=== PATIENT | male | born 1940 | race Caucasian/White ===

== ENCOUNTER → 2017-05-31 | Outpatient (CLI) | payer OTHER | LOC: BHFA 11:00 | PROVIDERS: ATTEND Internal Medicine Cardiovascular Disease | DX: I20.9 Angina pectoris, unspecified (principal); E78.5 Hyperlipidemia, unspecified; I25.10 Atherosclerotic heart disease of native coronary artery without angina pectoris ==

== ENCOUNTER 2017-06-01 13:27 | Inpatient (IN) | payer OTHER ==
[2017-06-01] MEDS ORDERED: DIAZEPAM 5 MG TAB PO ONE (13:29)
[2017-06-01] MEDS ORDERED: diphenhydrAMINE 25 MG CAP PO ONE (13:29)
[2017-06-01] MEDS ORDERED: FAMOTIDINE 20 MG TAB PO ONE (13:29)
[2017-06-01] MEDS ORDERED: NS 1,000 ML IV ONE (13:29)
[2017-06-01] MEDS ORDERED: ASPIRIN EC 325 MG TAB PO ONE (13:29)
--- NOTE | 2017-06-01 13:56 | CPEKG ---
Heart Rate: 57 RR Interval: 1053 P-R Interval: 132 QRSD Interval: 92 QT Interval: 456 QTC Interval: 444 P Linden: -1 QRS Linden: -25 T Wave Lind[place]: 7 EKG Severity - OTHERWISE NORMAL ECG - EKG Impression: SINUS RHYTHM EKG Impression: BORDERLINE LEFT AXIS DEVIATION EKG Impression: Agree with above. Electronically Signed By: Kane Lane 01-Jun-2017 17:02:31
[2017-06-01 14:21] LABS: % IMMATURE GRANULYOCYTES 0.2 % (0.0-1.1); ABSOLUTE IMMATURE GRANULOCYTES 0.01 10^3/uL (0.00-0.10); ADD DIFF? NO; ADD MORPH? NO; ADD SCAN? NO; ATYPICAL LYMPHOCYTE FLAG 40 (0-99); FRAGMENT RBC FLAG 0 (0-99); HEMATOCRIT 42.2 % (40.0-51.0); HEMOGLOBIN 14.4 g/dL (13.7-17.5); LEFT SHIFT FLG 0 (0-99); LIPEMIA HEMOLYSIS FLAG 90 (0-99); MEAN CELL HEMOGLOBIN 32.1 pg (27.9-34.1); MEAN CELL HEMOGLOBIN CONCENTR. 34.1 g/dL (32.4-36.7); MEAN CELL VOLUME 94.2 fL (81.5-99.8); MEAN PLATELET VOLUME 10.1 fL (8.7-11.7); PLATELET CLUMPS FLAG 20 (0-99); PLATELET COUNT 141 10^3/uL (150-400); RED BLOOD CELL COUNT 4.48 10^6/uL (4.40-6.38); RED CELL DISTRIBUTION WIDTH 14.1 % (11.5-15.2)
[2017-06-01 14:33] LABS: INR 1.07 (0.83-1.16); PROTIME(PATIENT) 13.8 SEC (12.0-15.0)
[2017-06-01 14:37] LABS: ANION GAP 13 mEq/L (8-16); CALCIUM 9.8 mg/dL (8.5-10.4); CARBON DIOXIDE 21 mEq/l (22-31); CHLORIDE 111 mEq/L (97-110); CHOLESTEROL 112 mg/dL (140-220); CHOLESTEROL/HDL RATIO 2.24 RATIO (1.00-4.97); CREATININE 0.7 mg/dL (0.7-1.3); GLOMERULAR FILTRATION RATE > 60; GLUCOSE 94 mg/dL (70-100); HIGH DENSITY LIPOPROTEIN 50 mg/dL (40-65); LDL/HDL RATIO 1.04 RATIO (1.00-3.64); LOW DENSITY LIPOPROTEIN 52 mg/dL (80-100); MAGNESIUM 2.2 mg/dL (1.6-2.3); NON-HIGH DENSITY LIPOPROTEIN 62 mg/dL (90-129); POTASSIUM 4.1 mEq/L (3.5-5.2); SODIUM 145 mEq/L (134-144); TRIGLYCERIDE 52 mg/dL (40-150); VERY LOW DENSITY LIPOPROTEINS 10 mg/dL (8-25)
[2017-06-01] MEDS ORDERED: fentaNYL 100 MCG/2 ML INJ ONE (15:55)
[2017-06-01] MEDS ORDERED: LIDOCAINE 1% 300 MG/30 ML SDV ONE (15:55)
[2017-06-01] MEDS ORDERED: HEPARIN 10,000 UNIT/10 ML MDV ONE (15:56)
[2017-06-01] MEDS ORDERED: MIDAZOLAM 2 MG/2 ML VIAL ONE ×3 (15:56→16:38)
[2017-06-01] MEDS ORDERED: VERAPAMIL 5 MG/2 ML VIAL ONE (15:56)
[2017-06-01] MEDS ORDERED: IOPAMIDOL (ISOVUE-370) 150 ML BTL IV ONE (15:57)
[2017-06-01] MEDS ORDERED: ONDANSETRON 4 MG/2 ML VIAL IVP PRN (17:30)
[2017-06-01] MEDS ORDERED: NITROGLYCERIN 0.4 MG BTL SL PRN (17:30)
[2017-06-01] MEDS ORDERED: ATROPINE SULFATE 1 MG/10 ML SYR IVP PRN (17:30)
[2017-06-01] MEDS ORDERED: NS 1,000 ML IV SCH (17:30)
[2017-06-01] MEDS ORDERED: NON-FORMULARY NEW DRUG (Loratadine [Claritin 10 Mg] 10 MG) PO PRN (17:35)
--- NOTE | 2017-06-01 17:41 | PDDXCAT ---
Diagnostic Cath Note - . Date: 06/01/17 [employer]ane [employer] Feeding Machine Operator: Keo Indication: CCC Class III and IV angina on medical treatment - Procedure Access: right wrist Procedure: left heart catheterization, coronary angiography, left ventriculogram - Materials Left Heart Cath size: 5F Left Heart Cath materials: other (Sightseer and Pigtail) - Findings-Left Heart Catheterization LM: Calcified with approximately 50% stenosis. LAD: Proximal LAD is calcified and involved with distal left main stenosis. Proximal LAD approximately 60%. Ostium of principle diagonal 60-70%. LCX: Proximal circumflex is also calcified and involved with left main stenosis. Proximal lesion of at least 50%. Remainder of circumflex with mild irregularities. RCA: Mid vessel 50%. Continuation of distal RCA, supplying 2 posterolateral branches, has a high grade stenosis of at least 80% at its origin just after the PDA arises. EDP: 12 mmHg LVEF: 70 % Wall motion: Normal. Complications: None Estimated blood loss: <50ml Closure method: TR Band Assessment: 1. Normal left ventricular systolic function. 2. CAD as described above. Plan: The patient will be admitted to PCU. A CT surgery consult will be obtained for consideration of CABG. Will require greater than to midnight stay for definitive care of his multivessel CAD.
--- NOTE | 2017-06-01 17:54 | ECHO ---
[id number] + + [id number] : : [place] [address] : : [phone] + + Adult Echocardiographic Report + -----+ :Name: LORI PANIAGUA Date: 06/01/2017 02:17 PM BP: 111/79 mmHg : : Hospital Admission Number: [id number] Location : [facility]: :: 1940 Gender: Male Height: 70 in : :Age: 76 yrs Race: WH Weight: 195 lb : :Reason For Study: eval for vegetations : : BSA: 2.1 meters2 : :History: chest pain : + -----+ MMode/2D Measurements \T\ Calculations IVSd: 0.82 cm RVDd: 3.0 cm FS: 32.1 % Ao root diam: LVPWd: 0.86 cm LVIDd: 4.3 cm EDV(Teich): 2.7 cm LVIDs: 2.9 cm 82.6 ml ESV(Teich): 32.5 ml EF(Teich): 60.6 % LVLd ap4: 8.3 cm SV(MOD-sp4): EDV(MOD-sp4): 89.0 ml 131.0 ml LVLs ap4: 5.9 cm ESV(MOD-sp4): 42.0 ml EF(MOD-sp4): 67.9 % Normal Measurement Values: + + :LVIDd (3.5-5.7cm) IVSd (0.6-1.1cm) LVPWd (0.6-1.1cm) Aortic Root (2.0-3.7cm)Left Atrium (1.5-4.0cm): :LV Vol(d) (76-115ml) LV Vol(s) (29-48ml) Ejec Fraction (50-65%)PV Cooper (0.6- 1.2m/s) TV Cooper (0.4-1.0m/s) : :MV E Cooper (0.8-1.0m/s)MV A Cooper (0.3-1.0m/s)LVOT Cooper (0.7-1.2m/s) Asc Ao Cooper ( 0.9-1.8m/s) : + + Doppler Measurements \T\ Calculations MV E max cooper: Ao V2 max: LV V1 max: PA V2 max: 76.0 cm/sec 121.6 cm/sec 94.4 cm/sec 123.5 cm/sec MV A max cooper: Ao max P.9 mmHgLV V1 max PG: PA max P.1 mmHg 76.0 cm/sec 3.6 mmHg MV E/A: 1.0 MV dec time: 0.24 sec Left Ventricle The left ventricle is normal in size and function. There is normal left ventricular wall thickness. Ejection Fraction = 65%. No regional wall motion abnormalities noted. Right Ventricle The right ventricle is normal in size and function. Atria The left atrial size is normal. Right atrial size is normal. Mitral Valve The mitral valve is normal in structure and function. There is no mitral valve stenosis. There is no mitral regurgitation noted. Tricuspid Valve The tricuspid valve is normal in structure and function. There is no tricuspid stenosis. There is trace tricuspid regurgitation. Aortic Valve The aortic valve is trileaflet. There is no aortic stenosis. There is no aortic insufficiency. Pulmonic Valve The pulmonic valve is normal in structure and function. There is no pulmonic valvular regurgitation. Great Vessels The aortic root is normal size. Pericardium/Pleural There is no pericardial effusion. Conclusion A two-dimensional transthoracic echocardiogram with M-mode and Doppler was performed. The left ventricle is normal in size and function. Ejection Fraction = 65%. Normal appearing valvular structures. There is trace tricuspid regurgitation. Final Reading Physician: Roman Hodge signed on 06/01/2017 05:52 PM Ordering Physician: Jere Crowley Performed By: Makenna Joshua
[2017-06-01] MEDS ORDERED: CETIRIZINE 10 MG TAB PO PRN (18:45)
[2017-06-01] MEDS: NIACIN 500 MG TAB PO SCH (21:03)
[2017-06-02] MEDS: NIACIN 500 MG TAB PO SCH ×2 (08:52→20:13)
[2017-06-02] MEDS: EZETIMIBE 10 MG TAB PO SCH (08:54)
[2017-06-02] MEDS: ATORVASTATIN CALCIUM 40 MG TAB PO SCH (08:54)
[2017-06-02] MEDS: DUTASTERIDE 0.5 MG CAP PO SCH (08:54)
[2017-06-02] MEDS: GLUCOSAMINE/CHONDROITIN CAP PO SCH (08:54)
[2017-06-02] MEDS: METOPROLOL SUCCINATE XR 25 MG TAB PO SCH (08:54)
[2017-06-02] MEDS: ASPIRIN 81 MG CHEWABLE TAB PO SCH (08:54)
[2017-06-02] MEDS ORDERED: NON-FORMULARY NEW DRUG (Atorvastatin Calcium [Lipitor 80 Mg] 80 MG) PO SCH (09:00)
--- NOTE | 2017-06-02 15:05 | PDSURGCRDT ---
CardioThoracic Surgery Note - Objective Objective: Vital Signs Temp Pulse Resp BP Pulse Ox 36.5 C 57 L 17 144/76 H 90 L 06/02/17 12:00 06/02/17 12:00 06/02/17 12:00 06/02/17 12:00 06/02/17 12:00 Laboratory Results 06/01/17 13:50 06/01/17 13:50 06/01/17 06/02/17 06/03/17 05:59 05:59 05:59 Intake Total 2000 Output Total 325 Balance 1675 Films reviewed. Pt examined. He has had exertional angina since Sep but is now having episodes of rest angina. Cath shows mod LM stenosis and sig 3vessel disease with normal LV function. Will plan CABG x 4 w/ 3-4 grafts tomorrow afternoon with bilat IMAs and 1-2 SVG. Have discussed risks and indications, including risk of sternal infection. Exam Temp Pulse Resp BP Pulse Ox 36.5 C 57 L 17 144/76 H 90 L 06/02/17 12:00 06/02/17 12:00 06/02/17 12:00 06/02/17 12:00 06/02/17 12:00 O2 (L/minute) 1
--- NOTE | 2017-06-02 15:16 | PDCARPN ---
Cardiology Progress Note Assessment/Plan: Coronary Artery Disease- significant left main disease (at least 50%) with calcification involving left main/proximal LAD/proximal circumflex. Also has high grade distal RCA lesion. Normal LV function. Current eval prompted by worsening angina. CT surgery to see. Hyperlipidemia- on atorvastatin, Zetia, and niacin. LDL on target at 52. 06/02/17 15:14 Subjective: No complaints. Objective: Vital Signs (8 Hrs) Temp Pulse Resp BP Pulse Ox 06/02/17 12:00 36.5 C 57 L 17 144/76 H 90 L 06/02/17 08:54 60 120/69 Intake/Output (24 Hrs) 06/01/17 06/02/17 06/03/17 05:59 05:59 05:59 Intake Total 2000 Output Total 325 Balance 1675 Intake: Oral (ml) 500 IV Intake (ml) 1500 Output: Urine (ml) 325 Urinal 325 Other: Weight 88.5 kg Number of Voids Urinal 1 Result Diagrams: 06/01/17 13:50 06/01/17 13:50 - Physical Exam Constitutional: healthy appearing, no apparent distress Eyes: anicteric sclera Ears, Nose, Mouth, Throat: moist mucous membranes Cardiovascular: regular rate and rhythm, no murmurs, no rubs, no gallops Respiratory: clear to auscultate bilat Gastrointestinal: normoactive bowel sounds, no tenderness, no masses Skin: no rashes, no edema Neurologic: AAOx3 Psychiatric: not anxious ICD10 Worksheet Patient Problems: Problems Problem Status Onset Angina pectoris Acute Hyperlipidemia Acute Coronary artery disease Acute
[2017-06-02] MEDS: MUPIROCIN 2% 22 GM OINT NS SCH (20:12)
[2017-06-02] MEDS: SENNOSIDES/DOCUSATE SODIUM TAB PO SCH (20:13)
[2017-06-02] MEDS ORDERED: CHLORHEXIDINE GLUC HIBICLENS 118 ML BTL TP SCH (21:00)
[2017-06-03 05:04] LABS: ANION GAP 9 mEq/L (8-16); CALCIUM 9.5 mg/dL (8.5-10.4); CARBON DIOXIDE 24 mEq/l (22-31); CHLORIDE 112 mEq/L (97-110); CREATININE 0.8 mg/dL (0.7-1.3); GLOMERULAR FILTRATION RATE > 60; GLUCOSE 95 mg/dL (70-100); POTASSIUM 4.7 mEq/L (3.5-5.2); SODIUM 145 mEq/L (134-144)
[2017-06-03] MEDS: METOPROLOL SUCCINATE XR 25 MG TAB PO SCH (09:44)
[2017-06-03] MEDS: DUTASTERIDE 0.5 MG CAP PO SCH (09:44)
[2017-06-03] MEDS ORDERED: MILRINONE/DEXTROSE/100 ML BAG IV ONE (10:30)
[2017-06-03] MEDS ORDERED: CALCIUM CHLORIDE 1 GM/10 ML INJ ONE ×2 (10:30→10:34)
[2017-06-03] MEDS ORDERED: PROTAMINE SULFATE 50 MG/5 ML VIAL IVP ONE (10:30)
[2017-06-03] MEDS ORDERED: POTASSIUM Cl (KCl) 20 MEQ/50 ML BAG IV ONE (10:30)
[2017-06-03] MEDS ORDERED: niCARdipine/NACL/200 ML BAG IV ONE (10:31)
[2017-06-03] MEDS ORDERED: NA BICARBONATE 50 MEQ/50 ML VIAL ONE (10:31)
[2017-06-03] MEDS ORDERED: DOPamine/DEXTROSE/250 ML BAG IV ONE (10:31)
[2017-06-03] MEDS ORDERED: AMINOCAPROIC ACID 5 GM/20 ML VIAL ONE ×2 (10:31→10:34)
[2017-06-03] MEDS ORDERED: HEPARIN 10,000 UNIT/10 ML MDV ONE ×2 (10:32→10:35)
[2017-06-03] MEDS ORDERED: AMIODARONE HCL 150 MG/3 ML VIAL ONE ×2 (10:32→10:34)
[2017-06-03] MEDS ORDERED: ADENOSINE 6 MG/2 ML VIAL ONE (10:32)
[2017-06-03] MEDS ORDERED: ceFAZolin 1 GM VIAL ONE (10:33)
[2017-06-03] MEDS ORDERED: ALBUMIN 5% 250 ML BOTTLE IV ONE (10:33)
[2017-06-03] MEDS ORDERED: LIDOCAINE 2% 100 MG/5 ML SYR ONE (10:34)
[2017-06-03] MEDS ORDERED: CITRATE DEXTROSE SOLN 500 ML BAG ONE (10:34)
[2017-06-03] MEDS ORDERED: methylPREDNISolone SOD SUCC 1 GM/8 ML VIAL ONE (10:35)
[2017-06-03] MEDS ORDERED: MAGNESIUM SULFATE 1 GM/2 ML VIAL ONE (10:35)
[2017-06-03] MEDS ORDERED: INSULIN REGULAR HUMAN 100 UNIT in NS 100 ML IV ONE (11:00)
[2017-06-03] MEDS ORDERED: CITRATE DEXTROSE SOLN 500 ML BAG MISC ONE (11:00)
[2017-06-03] MEDS ORDERED: NS 1,000 ML IV ONE (11:00)
[2017-06-03] MEDS ORDERED: VERAPAMIL 5 MG, NITROGLYCERIN 2.5 MG, HEPARIN 500 UNIT, SODIUM BICARBONATE 0.2 MEQ in L... MISC ONE (11:00)
[2017-06-03] MEDS ORDERED: PAPAVERINE HCL 60 MG in NS 100 ML IV ONE (11:00)
[2017-06-03] MEDS ORDERED: PHENYLEPHRINE HCL 50 MG in NS 250 ML IV ONE (11:00)
[2017-06-03] MEDS ORDERED: AMINOCAPROIC ACID 5 GM/20 ML VIAL IV ONE (11:00)
[2017-06-03] MEDS ORDERED: SODIUM BICARBONATE 20 MEQ, LIDOCAINE 1% 10 ML in NORMOSOL-R 1,000 ML MISC ONE (11:00)
[2017-06-03] MEDS ORDERED: ceFAZolin 2 GM/DEXTROSE 100 ML IV ONE (11:00)
[2017-06-03] MEDS ORDERED: MANNITOL 25% 12.5 GM/50 ML VIAL IV ONE (11:00)
--- NOTE | 2017-06-03 11:22 | PDGENHP ---
History and Physical - Chief Complaint severe multivessel CAD - History of Present Illness 76 yo male with multiple cardiac risk factors and crescendo angina admitted for elective cardiac cath and found to have severe multivessel CAD. Medically optimized and referred for surgical revascularization. No associated LVSD, LVDD , valvular dysfx, arrhythmia, CHF, or prohibitive neurologic risk. No CP or hemodynamic instability awaiting OR. History Information - Allergies/Home Medication List Allergies/Adverse Reactions: No Known Allergies Allergy (Unverified 06/01/17 13:29) Home Medications: Aspirin [Aspirin 81mg (*)] 81 mg PO DAILY 06/01/17 [Last Taken 05/31/17] Atorvastatin Calcium [Lipitor 80 mg] 80 mg PO DAILY 06/01/17 [Last Taken ] Dutasteride [Avodart 0.5 MG (*)] 0.5 mg PO DAILY 06/01/17 [Last Taken 05/31/17] Ezetimibe [Zetia 10 MG (*)] 10 mg PO DAILY 06/01/17 [Last Taken 05/31/17] Glucosamine/Chondroitin [Glucosamine/Chondroitin (*)] 1 each PO DAILY 06/01/17 [ Last Taken 05/31/17] Ibuprofen [Motrin (*)] 200 mg PO DAILY PRN 06/01/17 [Last Taken Unknown] Loratadine [Claritin 10 mg] 10 mg PO DAILY PRN 06/01/17 [Last Taken Unknown] Metoprolol Succinate Xr [Toprol Xl 25 mg (*)] 25 mg PO DAILY 06/01/17 [Last Taken 06/01/17] Niacin [Niacin 500 mg (*)] 2,000 mg PO HS 06/01/17 [Last Taken 05/31/17] Nitroglycerin [Nitrostat 0.4 mg (*)] 0.4 mg SL Q5M 06/01/17 [Last Taken Unknown] TESTOSTERONE [Androgel 1.62% pump] 10 gr TD DAILY 06/01/17 [Last Taken 05/31/17] Tadalafil [Cialis] 5 mg PO DAILY 06/01/17 [Last Taken 05/31/17] I have personally reviewed and updated: family history (premature CAD), medical history, social history (remote smoker, 40pk yr hx), surgical history - Past Medical History coronary artery disease (presumed by elevated calcium score on EBCT 4 yrs ago), hyperlipidemia Additional medical history: Exertional chest pressure x 8mo, resolving within 5 min of rest. Increased frequency at earlier levels of exercise over past couple weeks, including some rest pain - Surgical History Additional surgical history: prostate March 2017 - Social History Smoking Status: Former smoker Review of Systems ROS: 10pt was reviewed & negative except for what was stated in HPI & below Physical Exam Temp Pulse Resp BP Pulse Ox 36.4 C 65 16 100/58 L 96 06/03/17 08:59 06/03/17 09:44 06/03/17 08:59 06/03/17 09:44 06/03/17 08:59 O2 (L/minute) 2 Constitutional: no apparent distress Eyes: anicteric sclera, other (PER) Ears, Nose, Mouth, Throat: moist mucous membranes, other (no visible dental disrepair) Cardiovascular: regular rate and rhythym, pulses symmetric bilaterally, other ( trace perimalleolar edema, no visible varicosities) Peripheral Pulses: 2+: dorsalis-pedis (R), dorsalis-pedis (L) Respiratory: no respiratory distress, clear to auscultation Gastrointestinal: soft, non-tender abdomen Skin: warm, normal color Musculoskeletal: other (symmetric tone) Neurologic: AAOx3 Psychiatric: interacting appropriately Lab Data & Imaging Review 06/01/17 13:50 06/03/17 03:45 WBC 6.07 10^3/uL (3.80-9.50) 06/01/17 13:50 RBC 4.48 10^6/uL (4.40-6.38) 06/01/17 13:50 Hgb 14.4 g/dL (13.7-17.5) 06/01/17 13:50 Hct 42.2 % (40.0-51.0) 06/01/17 13:50 MCV 94.2 fL (81.5-99.8) 06/01/17 13:50 MCH 32.1 pg (27.9-34.1) 06/01/17 13:50 MCHC 34.1 g/dL (32.4-36.7) 06/01/17 13:50 RDW 14.1 % (11.5-15.2) 06/01/17 13:50 Plt Count 141 10^3/uL (150-400) L 06/01/17 13:50 MPV 10.1 fL (8.7-11.7) 06/01/17 13:50 Neut % (Auto) 47.8 % (39.3-74.2) 06/01/17 13:50 Lymph % (Auto) 37.6 % (15.0-45.0) 06/01/17 13:50 Burnett % (Auto) 8.2 % (4.5-13.0) 06/01/17 13:50 Eos % (Auto) 5.9 % (0.6-7.6) 06/01/17 13:50 Baso % (Auto) 0.3 % (0.3-1.7) 06/01/17 13:50 Nucleat RBC Rel Count 0.0 % (0.0-0.2) 06/01/17 13:50 Absolute Neuts (auto) 2.90 10^3/uL (1.70-6.50) 06/01/17 13:50 Absolute Lymphs (auto) 2.28 10^3/uL (1.00-3.00) 06/01/17 13:50 Absolute Monos (auto) 0.50 10^3/uL (0.30-0.80) 06/01/17 13:50 Absolute Eos (auto) 0.36 10^3/uL (0.03-0.40) 06/01/17 13:50 Absolute Basos (auto) 0.02 10^3/uL (0.02-0.10) 06/01/17 13:50 Absolute Nucleated RBC 0.00 10^3/uL (0-0.01) 06/01/17 13:50 Immature Gran % 0.2 % (0.0-1.1) 06/01/17 13:50 Immature Gran # 0.01 10^3/uL (0.00-0.10) 06/01/17 13:50 PT 13.8 SEC (12.0-15.0) 06/01/17 13:50 INR 1.07 (0.83-1.16) 06/01/17 13:50 Sodium 145 mEq/L (134-144) H 06/03/17 03:45 Potassium 4.7 mEq/L (3.5-5.2) 06/03/17 03:45 Chloride 112 mEq/L (97-110) H 06/03/17 03:45 Carbon Dioxide 24 mEq/l (22-31) 06/03/17 03:45 Anion Gap 9 mEq/L (8-16) 06/03/17 03:45 BUN 25 mg/dL (7-23) H 06/03/17 03:45 Creatinine 0.8 mg/dL (0.7-1.3) 06/03/17 03:45 Estimated GFR > 60 06/03/17 03:45 Glucose 95 mg/dL (70-100) 06/03/17 03:45 Calcium 9.5 mg/dL (8.5-10.4) 06/03/17 03:45 Magnesium 2.2 mg/dL (1.6-2.3) 06/01/17 13:50 Triglycerides 52 mg/dL (40-150) 06/01/17 13:50 Cholesterol 112 mg/dL (140-220) L 06/01/17 13:50 Cholesterol Risk Factr 0.4 (0.2-1.0) 06/01/17 13:50 LDL Cholesterol, Calc 52 mg/dL (80-100) L 06/01/17 13:50 LDL Risk Factor 0.5 (0.2-1.0) 06/01/17 13:50 VLDL Cholesterol 10 mg/dL (8-25) 06/01/17 13:50 Non-HDL Cholesterol 62 mg/dL (90-129) L 06/01/17 13:50 HDL Cholesterol 50 mg/dL (40-65) 06/01/17 13:50 LDL/HDL Ratio 1.04 RATIO (1.00-3.64) 06/01/17 13:50 Cholesterol/HDL Ratio 2.24 RATIO (1.00-4.97) 06/01/17 13:50 Patient ABO/Rh A POSITIVE 06/02/17 16:50 Antibody Screen NEGATIVE 06/02/17 16:50 Imaging Review: Transthoracic echo: nl BiV size and systolic fx, LVEF65%, no significant valvular dysfx LHC: severe multivessel CAD with LM, prox LAD and prox LCX involvement, no RWMA , LVEDP 12 Carotid US: mild plaquing, no hemodynamically sig stenoses, antegrade flow bilat vertebrals Visualized and Interpreted Chest x-ray results: Yes Chest X-Ray results: no infiltrate, normal heart size (borderline joseph) Visualized and Interpreted imaging results: Yes Visualized and Interpreted EKG results: Yes EKG Interpretation: Positive for: normal sinsus rhythm Assessment & Plan Assessment: Sx CAD w preserved LV systolic fx Hyperlipidemia (Acute) Plan: CABG today by Dr Chavez. Probable bilateral mammary use. Consents signed yest. No new questions or concerns.
[2017-06-03 11:42] LABS: HEMOGLOBIN A1C 5.5 % (4.0-6.0)
[2017-06-03] MEDS ORDERED: LR 1,000 ML IV ONE (13:59)
[2017-06-03] MEDS ORDERED: PAPAVERINE HCL 60 MG/2 ML SDV ONE (14:04)
[2017-06-03] MEDS ORDERED: VANCOMYCIN 1 GM VIAL ONE (14:04)
[2017-06-03] MEDS ORDERED: CEFAZOLIN 2 GM/DEXTROSE/100 ML BAG IV ONE (14:06)
[2017-06-03] MEDS: MUPIROCIN 2% 22 GM OINT NS SCH ×2 (14:11→22:00)
[2017-06-03] MEDS ORDERED: MIDAZOLAM 2 MG/2 ML VIAL IVP ONE (14:31)
--- NOTE | 2017-06-03 14:31 | PDANEPAE ---
ANE History of Present Illness 76 y/o for CABG, Nl LV ANE Past Medical History - Cardiovascular History Hx Hypertension: Yes Hx Arrhythmias: No Hx Chest Pain: Yes Hx Coronary Artery / Peripheral Vascular Disease: Yes Hx CHF / Valvular Disease: No Hx Palpitations: No - Pulmonary History Hx COPD: No Hx Asthma/Reactive Airway Disease: No Hx Recent Upper Respiratory Infection: No Hx Oxygen in Use at Home: No Hx Sleep Apnea: No Sleep Apnea Screening Result - Last Documented: Negative - Endocrine History Hx Diabetes: No - Chronic Pain History Chronic Pain: No ANE Review of Systems - Exercise capacity METS (RN): 4 METS ANE Patient History - Allergies Allergies/Adverse Reactions: No Known Allergies Allergy (Unverified 06/01/17 13:29) - Home Medications Home medications: home medication list seen and reviewed Home Medications: Aspirin [Aspirin 81mg (*)] 81 mg PO DAILY 06/01/17 [Last Taken 05/31/17] Atorvastatin Calcium [Lipitor 80 mg] 80 mg PO DAILY 06/01/17 [Last Taken ] Dutasteride [Avodart 0.5 MG (*)] 0.5 mg PO DAILY 06/01/17 [Last Taken 05/31/17] Ezetimibe [Zetia 10 MG (*)] 10 mg PO DAILY 06/01/17 [Last Taken 05/31/17] Glucosamine/Chondroitin [Glucosamine/Chondroitin (*)] 1 each PO DAILY 06/01/17 [ Last Taken 05/31/17] Ibuprofen [Motrin (*)] 200 mg PO DAILY PRN 06/01/17 [Last Taken Unknown] Loratadine [Claritin 10 mg] 10 mg PO DAILY PRN 06/01/17 [Last Taken Unknown] Metoprolol Succinate Xr [Toprol Xl 25 mg (*)] 25 mg PO DAILY 06/01/17 [Last Taken 06/01/17] Niacin [Niacin 500 mg (*)] 2,000 mg PO HS 06/01/17 [Last Taken 05/31/17] Nitroglycerin [Nitrostat 0.4 mg (*)] 0.4 mg SL Q5M 06/01/17 [Last Taken Unknown] TESTOSTERONE [Androgel 1.62% pump] 10 gr TD DAILY 06/01/17 [Last Taken 05/31/17] Tadalafil [Cialis] 5 mg PO DAILY 06/01/17 [Last Taken 05/31/17] - NPO status NPO Since - Liquids (Date): 06/03/17 NPO Since - Liquids (Time): 00:00 NPO Since - Solids (Date): 06/03/17 NPO Since - Solids (Time): 00:00 - Smoking Hx Smoking Status: Former smoker ANE Labs/Vital Signs - Labs Result Diagrams: 06/01/17 13:50 06/03/17 03:45 - Vital Signs Blood Pressure: 108/62 Heart Rate: 50 Respiratory Rate: 16 O2 Sat (%): 93 Height: 5 ft 10.08 in Weight: 87.2 kg ANE Physical Exam - Airway Neck exam: FROM Mallampati Score: Class 2 Mouth exam: normal dental/mouth exam - Pulmonary Pulmonary: no respiratory distress - Cardiovascular Cardiovascular: regular rate and rhythym - ASA Status ASA Status: IV ANE Anesthesia Plan Anesthesia Plan: general endotracheal anesthesia Lines/Monitors: arterial line, central line, TOYA
[2017-06-03] MEDS ORDERED: MIDAZOLAM 2 MG/2 ML VIAL ONE (14:35)
[2017-06-03] MEDS ORDERED: PROPOFOL/EMULSION 500 MG/50 ML BOTTLE IV ONE ×2 (14:44→17:07)
[2017-06-03] MEDS ORDERED: SUFentanil 250 MCG/5 ML AMP ONE (14:44)
[2017-06-03] MEDS ORDERED: MAGNESIUM SULF 2 GM/WATER 50 ML BAG IV ONE (15:00)
[2017-06-03] MEDS ORDERED: NITROGLYCERIN/D5W 50 MG/250 ML BOTTLE IV ONE (18:06)
[2017-06-03] MEDS: ASPIRIN 81 MG CHEWABLE TAB PO SCH (19:01)
[2017-06-03] MEDS: NIACIN 500 MG TAB PO SCH (19:01)
[2017-06-03] MEDS: SENNOSIDES/DOCUSATE SODIUM TAB PO SCH (19:01)
[2017-06-03] MEDS: GLUCOSAMINE/CHONDROITIN CAP PO SCH (19:01)
[2017-06-03] MEDS: ATORVASTATIN CALCIUM 40 MG TAB PO SCH (19:01)
[2017-06-03] MEDS: EZETIMIBE 10 MG TAB PO SCH (19:01)
--- NOTE | 2017-06-03 19:07 | POSTOPPROG ---
Post Op Note Date of Operation: 06/03/17 Surgeon: Alexys Chavez Orientor: Enrique ROQUE Anesthesia: GET(General Endotracheal) Pre-op Diagnosis: coronary artery disease Post-op Diagnosis: same Indication: CAD Procedure: CABGx4 w/ SVG - diag, SVG - OM, SHAFER - LAD, skeletonized YAHAIRA - RCA Findings: CAD Inf/Abcess present in the surg proc area at time of surgery?: No EBL: Minimal (Unable to measure) Complications: None Drains: Other (Chest tube x 3)
[2017-06-03] MEDS ORDERED: POLYETHYLENE GLYCOL 3350 17 GM PKT PO PRN (19:24)
[2017-06-03] MEDS ORDERED: MEPERIDINE 25 MG/ML SYR IVP PRN (19:24)
[2017-06-03] MEDS ORDERED: PANTOPRAZOLE SODIUM 40 MG in NS 100 ML IV ONE (19:24)
[2017-06-03] MEDS ORDERED: ONDANSETRON DISINTEGRATING 4 MG TAB PO PRN (19:24)
[2017-06-03] MEDS ORDERED: SODIUM CL NASAL 45 ML BTL EACHNARE PRN (19:24)
[2017-06-03] MEDS ORDERED: ACETAMINOPHEN 650 MG SUPP PR PRN (19:24)
[2017-06-03] MEDS ORDERED: MAGNESIUM HYDROXIDE 30 ML UDCUP PO PRN (19:24)
[2017-06-03] MEDS ORDERED: MAGNESIUM SULF 2 GM/WATER 50 ML IV ONE (19:24)
[2017-06-03] MEDS ORDERED: BISACODYL 10 MG SUPP PR PRN (19:24)
[2017-06-03] MEDS ORDERED: METOCLOPRAMIDE 10 MG/2 ML VIAL IVP PRN (19:24)
[2017-06-03] MEDS ORDERED: LACTULOSE 20 GM/30 ML UDCUP PO PRN (19:24)
[2017-06-03] MEDS ORDERED: CEPACOL LOZENGE PO PRN (19:24)
[2017-06-03] MEDS ORDERED: D50W 25 GM/50 ML SYR IVP PRN (19:24)
[2017-06-03] MEDS ORDERED: INSULIN REGULAR HUMAN 100 UNIT in NS 100 ML IV SCH (19:30)
[2017-06-03] MEDS ORDERED: ALBUMIN 5% 500 ML BOTTLE IV ONE (19:44)
[2017-06-03 20:00] LABS: BASE EXCESS -5.5 mEq/L (-2.5-2.5); BICARBONATE 19 mEq/L (22-26); MEASURED OXYGEN SATURATION 99 % (92-95); PCO2 31 mmHg (34-38); PO2 150 mmHg (65-75); SIMV YES; TCO2 20 mEq/L (23-27)
[2017-06-03] MEDS ORDERED: NITROGLYCERIN/DEXTROSE 250 ML IV SCH (20:00)
[2017-06-03 20:01] LABS: END TIDAL CO2 28; O2 CONCENTRATIION 60 % (0-100); P/F RATIO 250 RATIO; PATIENT RATE 14; PRESSURE SUPPORT 7
[2017-06-03 20:13] LABS: HEMATOCRIT 33.9 % (40.0-51.0); HEMOGLOBIN 11.6 g/dL (13.7-17.5); MEAN CELL HEMOGLOBIN 32.7 pg (27.9-34.1); MEAN CELL HEMOGLOBIN CONCENTR. 34.2 g/dL (32.4-36.7); MEAN CELL VOLUME 95.5 fL (81.5-99.8); RED BLOOD CELL COUNT 3.55 10^6/uL (4.40-6.38); RED CELL DISTRIBUTION WIDTH 13.8 % (11.5-15.2)
[2017-06-03] MEDS: NS 1,000 ML IV SCH ×2 (20:13→21:11)
[2017-06-03] MEDS: fentaNYL 100 MCG/2 ML INJ IVP PRN ×2 (20:26→23:44)
[2017-06-03] MEDS ORDERED: ALBUMIN 5% 500 ML IV ONE (20:30)
[2017-06-03 20:43] LABS: INR 1.69 (0.83-1.16); PROTIME(PATIENT) 19.9 SEC (12.0-15.0)
[2017-06-03 20:44] LABS: APTT 33.7 SEC (23.0-38.0)
--- NOTE | 2017-06-03 21:01 | POSTANESTH ---
Post Anesthetic Evaluation Cardiovascular Status: Normal, Stable Respiratory Status: Other, See Comment Level of Consciousness/Mental Status: Unconscious Pain Control: Adequate, Prn Tx Ordered Nausea/Vomiting Control: Adequate, Prn Tx Ordered Complications Possibly Related to Anesthesia: None Noted (On vent,sedated. No apparent comp anesthesia)
--- NOTE | 2017-06-03 21:19 | GOP ---
[f rep st] OPERATIVE REPORT DATE OF OPERATION: 06/03/2017 SURGEON: Alexys Chavez MD FLASK PUSHER: Elsa Nunez PA-C. PREOPERATIVE DIAGNOSIS: Coronary artery disease with left main coronary stenosis. POSTOPERATIVE DIAGNOSIS: Coronary artery disease with left main coronary stenosis. PROCEDURE PERFORMED: Four-vessel coronary artery bypass with saphenous vein grafts to the diagonal and the obtuse marginal, left internal mammary artery bypass to the left anterior descending artery, skeletonized right internal mammary artery bypass to the posterior descending branch of the right c oronary artery. FINDINGS: Saphenous vein from the left leg was excellent. The sternum was normal. The right and l eft internal mammary arteries were of adequate quality and caliber. The heart contracted well. The posterior descending was 2.25 mm and good quality. The diagonal was 2 mm and good quality. The LA D was 2 mm and good quality. The obtuse marginal was 2.5 mm and good quality. INDICATIONS: This is a 76-year-old very active male who has had angina for the past number of month s but recently he has developed rest angina. This prompted a catheterization which showed left main coronary stenosis and significant right coronary disease. Surgery was recommended. DESCRIPTION OF PROCEDURE: Consent was signed. The patient was taken to the operating room where ce ntral line and arterial lines were inserted. General endotracheal anesthesia was administered. TOYA was performed. The patient was prepped and draped. The saphenous vein was harvested from the left thigh as an endovascular harvesting system. Median sternotomy was performed. The left central destini shaggy artery was mobilized and the right internal mammary artery was mobilized as a skeletonized bunny t. Pursestrings were placed. The patient was heparinized, cannulated, and placed on bypass. Body temperature was allowed to drift. The aorta was cross-clamped. Cold potassium-containing blood car dioplegia was infused in the aortic root and reinfused after each 20 minutes of cross-clamp time. S aphenous vein grafts were placed to the obtuse marginal and to the diagonal. The skeletonized right internal mammary artery was anastomosed to the proximal posterior descending branch of the right co ronary artery, and the pedicle of the left internal mammary artery to the mid left anterior descendi ng artery. The above pericardium were incised. Cross-clamp was removed. Proximal ends of the vein grafts were anastomosed to 4.8 mm punch holes on the ascending aorta. The grafts were deaired. Al gutierrez anastomoses were checked and found to be hemostatic. Radiopaque rings were placed as were ventric ular pacemaker wires. The heart was cardioverted to a normal sinus rhythm. Next, 1 g calcium chlor nicole was administered. Ventilation was started, and the patient was then weaned off cardiopulmonary bypass. Protamine sulfate was administered. Hemostasis was obtained. The patient was decannulated . Mediastinal fat was closed. Right-angle chest tubes were placed in both pleural spaces, straight tube in the mediastinum. The sternum was closed with #5 stainless steel wires. The remainder of t he chest was closed in usual fashion. Dressings were applied. COMPLICATIONS: None. POSTOPERATIVE CONDITION: Stable. /[id number]/MODL
--- NOTE | 2017-06-03 21:27 | CPEKG ---
Heart Rate: 89 RR Interval: 674 P-R Interval: 148 QRSD Interval: 86 QT Interval: 400 QTC Interval: 487 P M[place]osta: 52 QRS [place]: 5 T Wave [place]: -24 EKG Severity - ABNORMAL ECG - EKG Impression: SINUS RHYTHM EKG Impression: LOW VOLTAGE IN FRONTAL LEADS EKG Impression: ABNORMAL T, CONSIDER ISCHEMIA, INFERIOR LEADS--MORE PRONOUNCED SINCE JUNE 01, EKG Impression: 2016 EKG Impression: BORDERLINE PROLONGED QT INTERVAL Electronically Signed By: Kane Lane 04-Jun-2017 06:59:17
[2017-06-03] MEDS: POTASSIUM Cl (KCl) 50 ML IV PRN ×2 (23:06→23:57)
[2017-06-03] MEDS: ALBUMIN 5% 250 ML IV PRN (23:49)
[2017-06-04] MEDS: HYDROCODONE/APAP 5/325 TAB PO PRN ×5 (00:29→19:59)
[2017-06-04] MEDS: ALBUMIN 5% 250 ML IV PRN (02:41)
[2017-06-04] MEDS: ceFAZolin 2 GM/DEXTROSE 100 ML IV SCH ×3 (02:41→17:51)
[2017-06-04 04:11] LABS: % IMMATURE GRANULYOCYTES 0.2 % (0.0-1.1); ABSOLUTE IMMATURE GRANULOCYTES 0.02 10^3/uL (0.00-0.10); ADD DIFF? NO; ADD MORPH? NO; ADD SCAN? NO; ATYPICAL LYMPHOCYTE FLAG 90 (0-99); FRAGMENT RBC FLAG 0 (0-99); HEMATOCRIT 33.2 % (40.0-51.0); HEMOGLOBIN 11.2 g/dL (13.7-17.5); LEFT SHIFT FLG 50 (0-99); LIPEMIA HEMOLYSIS FLAG 80 (0-99); MEAN CELL HEMOGLOBIN 32.3 pg (27.9-34.1); MEAN CELL HEMOGLOBIN CONCENTR. 33.7 g/dL (32.4-36.7); MEAN CELL VOLUME 95.7 fL (81.5-99.8); MEAN PLATELET VOLUME 9.9 fL (8.7-11.7); PLATELET CLUMPS FLAG 10 (0-99); PLATELET COUNT 92 10^3/uL (150-400); RED BLOOD CELL COUNT 3.47 10^6/uL (4.40-6.38); RED CELL DISTRIBUTION WIDTH 14.1 % (11.5-15.2)
[2017-06-04 04:23] LABS: ANION GAP 12 mEq/L (8-16); CALCIUM 8.9 mg/dL (8.5-10.4); CARBON DIOXIDE 21 mEq/l (22-31); CHLORIDE 115 mEq/L (97-110); CREATININE 0.6 mg/dL (0.7-1.3); GLOMERULAR FILTRATION RATE > 60; GLUCOSE 138 mg/dL (70-100); SODIUM 148 mEq/L (134-144)
[2017-06-04 06:04] LABS: CALCULATED OXYGEN SATURATION 99 % (92-95); O2 CONCENTRATIION 60 % (0-100)
[2017-06-04] MEDS ORDERED: FUROSEMIDE 20 MG/2 ML VIAL IVP ONE (08:15)
--- NOTE | 2017-06-04 08:31 | SOAPPROG ---
SOAP Progress Note Assessment/Plan: Assessment: POD#1 CABG x 4 (skeletonized YAHAIRA-PDAR, SHAFER-LAD, SV-D1, SV-OM), EVH left thigh. Sx CAD with preserved LV systolic fx - s/p CABG w 2 arterial grafts. Stable early postop course. No pressor support, tachyarrhythmia, or triggered backup pacing. Modest fluid overload. Secondary prevention with baby ASA, BB as allowed by HR and BP, and statin. CAMRON antispasm prophylaxis with nitrates x 1 mo. Acute expected blood loss anemia with mild coagulopathy - Stable. No blood products transfused. VTE prophylaxis with SCDs while plt count depressed. Stress hyperglycemia - Preop A1c of 5.5%. Postop hyperglycemia controlled with low dose insulin gtt. Transition to SSI in progress. Likely can discontinue monitoring within 24 hrs. Plan: Routine POD#1 orders re lines, TCPWs, and mobility. Clear liquid diet until improved bowel sounds. Lasix 20mg x 1. Transition IV NTG to Imdur. Consider chest tube removal this afternoon. Anticipate tx to PCU later this am. 06/04/17 08:19 Subjective: Doing ok. Fragmented sleep d/t disruptions moreso than discomfort. No appetite. Burping but not nauseous. OOB without dizziness. Needs to stand to urinate and would like to keep rose for a few more hours. Objective: Vital Signs Temp Pulse Resp BP Pulse Ox 36.8 C 81 18 138/67 H 99 06/04/17 04:00 06/04/17 07:00 06/04/17 07:00 06/04/17 07:00 06/04/17 07:00 Laboratory Results 06/04/17 04:05 06/04/17 04:05 06/03/17 06/04/17 06/05/17 05:59 05:59 05:59 Intake Total 1000 2106 Output Total 2240 Balance 1000 -134 PT 19.9 SEC (12.0-15.0) H 06/03/17 19:05 INR 1.69 (0.83-1.16) H 06/03/17 19:05 Extubated last night without incident. Modest suppl O2 requirement. Rhythm sinus. Vpaced earlier this am for capture moreso than need. Stable MAPs w CVPs 7-12. Currently 11. Balanced I/Os. CXR -> No PTX, mild pulm vasc congestion, pleural spaces well drained. Chest tube drainage thinning and output dropping. Labs as expected. Physical Exam - Physical Exam General Appearance: alert, no apparent distress Respiratory: lungs clear (grossly), other (Chest tubes x 3 y-d to pleurovac, serosang drainage, +tidal, no air leak) Cardiac/Chest: regular rate, rhythm, friction rub, other (Sternum grossly stable. Sternotomy CDI. Vwires intact) Abdomen: soft, other (hypoactive BS) Skin: warm/dry Extremities: other (LLE ursula wrap intact) ICD10 Worksheet Patient Problems: Problems Problem Status Onset Acute blood loss anemia Acute Angina pectoris Acute Coronary artery disease Acute Hyperlipidemia Acute S/P CABG x 4 Acute ~06/03/17
[2017-06-04] MEDS ORDERED: oxyCODONE IR 5 MG TAB PO PRN (09:00)
[2017-06-04] MEDS: MUPIROCIN 2% 22 GM OINT NS SCH ×2 (09:12→20:05)
[2017-06-04] MEDS: ASPIRIN 81 MG CHEWABLE TAB PO SCH (09:12)
[2017-06-04] MEDS: DUTASTERIDE 0.5 MG CAP PO SCH (09:13)
[2017-06-04] MEDS: PANTOPRAZOLE SODIUM 40 MG TAB PO SCH (09:13)
[2017-06-04] MEDS: ISOSORBIDE MONONITRATE 30 MG TAB.SR PO SCH (09:13)
[2017-06-04] MEDS: GLUCOSAMINE/CHONDROITIN CAP PO SCH (13:30)
[2017-06-04] MEDS: INSULIN LISPRO 100 UNIT/ML SC SCH ×2 (13:34→18:09)
[2017-06-04 16:34] LABS: POTASSIUM 4.8 mEq/L (3.5-5.2)
[2017-06-04] MEDS ORDERED: METOPROLOL TARTRATE 25 MG TAB PO SCH (21:00)
[2017-06-05] MEDS: HYDROCODONE/APAP 5/325 TAB PO PRN (03:01)
[2017-06-05] MEDS: ceFAZolin 2 GM/DEXTROSE 100 ML IV SCH ×3 (03:02→18:38)
[2017-06-05 03:33] LABS: ANION GAP 9 mEq/L (8-16); CALCIUM 8.8 mg/dL (8.5-10.4); CARBON DIOXIDE 26 mEq/l (22-31); CHLORIDE 106 mEq/L (97-110); CREATININE 0.7 mg/dL (0.7-1.3); GLOMERULAR FILTRATION RATE > 60; GLUCOSE 136 mg/dL (70-100); POTASSIUM 4.3 mEq/L (3.5-5.2); SODIUM 141 mEq/L (134-144)
--- NOTE | 2017-06-05 07:41 | PDSURGCRDT ---
CardioThoracic Surgery Note - Objective Objective: Vital Signs Temp Pulse Resp BP Pulse Ox 37.3 C 95 18 110/59 L 96 06/05/17 04:00 06/05/17 07:23 06/05/17 07:23 06/05/17 07:23 06/05/17 07:23 Laboratory Results 06/04/17 04:05 06/05/17 03:12 06/04/17 06/05/17 06/06/17 05:59 05:59 05:59 Intake Total 2106 1679.4 Output Total 2240 2221 150 Balance -134 -541.6 -150 Afebrile VSS BP 110 syst P=95 CT 300cc/12hr UO 1350cc/12hr BMP nl Lungs clear Cor RRR +rub Pain control adequate. Not much appetite. Not quite ready to remove tubes Exam Temp Pulse Resp BP Pulse Ox 37.3 C 95 18 110/59 L 96 06/05/17 04:00 06/05/17 07:23 06/05/17 07:23 06/05/17 07:23 06/05/17 07:23 O2 (L/minute) 3 FIO2 (%) 40
[2017-06-05] MEDS ORDERED: FUROSEMIDE 40 MG/4 ML VIAL IVP ONE (07:42)
[2017-06-05] MEDS ORDERED: POTASSIUM CL 20 MEQ TAB PO ONE (07:42)
[2017-06-05] MEDS: INSULIN LISPRO 100 UNIT/ML SC SCH ×3 (08:54→17:48)
[2017-06-05] MEDS: DUTASTERIDE 0.5 MG CAP PO SCH (08:56)
[2017-06-05] MEDS: GLUCOSAMINE/CHONDROITIN CAP PO SCH (08:56)
[2017-06-05] MEDS: ASPIRIN 81 MG CHEWABLE TAB PO SCH (08:57)
[2017-06-05] MEDS: PANTOPRAZOLE SODIUM 40 MG TAB PO SCH (08:57)
[2017-06-05] MEDS: SENNOSIDES/DOCUSATE SODIUM TAB PO SCH ×2 (08:57→20:48)
[2017-06-05] MEDS: ISOSORBIDE MONONITRATE 30 MG TAB.SR PO SCH (08:57)
[2017-06-05] MEDS: METOPROLOL TARTRATE 25 MG TAB PO SCH ×2 (09:50→20:49)
[2017-06-05] MEDS ORDERED: AMIODARONE HCL 200 ML IV PRN (17:44)
[2017-06-05] MEDS ORDERED: AMIODARONE HCL 100 ML IV ONE (17:45)
[2017-06-05] MEDS: ACETAMINOPHEN 325 MG TAB PO PRN (18:32)
[2017-06-05 18:33] LABS: MAGNESIUM 2.1 mg/dL (1.6-2.3); POTASSIUM 4.4 mEq/L (3.5-5.2)
[2017-06-05] MEDS ORDERED: traMADol 50 MG TAB PO PRN (20:00)
[2017-06-06] MEDS ORDERED: AMIODARONE HCL 540 MG in D5W 300 ML IV PRN (00:30)
[2017-06-06] MEDS: ACETAMINOPHEN 325 MG TAB PO PRN ×2 (05:50→09:36)
[2017-06-06 06:14] LABS: POTASSIUM 3.9 mEq/L (3.5-5.2)
--- NOTE | 2017-06-06 08:23 | SOAPPROG ---
SOAP Progress Note Assessment/Plan: Assessment: POD#3 CABG x 4 (skeletonized YAHAIRA-PDAR, SHAFER-LAD, SV-D1, SV-OM), EVH left thigh. Sx CAD with preserved LV systolic fx - s/p CABG w 2 arterial grafts. Hemodynamically stable early postop course. Modest fluid overload. Secondary prevention with baby ASA, BB, and statin. CAMRON antispasm prophylaxis with nitrates x 1 mo. Acute expected blood loss anemia with mild coagulopathy - Stable. No blood products transfused. VTE prophylaxis with SCDs while plt count depressed. Postoperative PAF - with VVR, intermittent RVR. SR restored on IV amiodarone. Escalation of BB limited by BP. Antithrombotic prophylaxis w DOAC only if recurrent or persistent arrhythmia. Stress hyperglycemia - Preop A1c of 5.5%. Postop hyperglycemia controlled with low dose insulin gtt, transitioning to SSI. Steady resolution of correctional needs. Monitoring suspended. Plan: Chest tubes and Vwire removed. Transition to oral amio tonight. Cont metoprolol 25 mg BID. Cont Imdur. No diuresis today. Wean O2. Dispo - Anticipate home tomorrow. 06/06/17 08:21 Subjective: Aware of palpitations from dinner yest until about midnight. Some mild dizziness with walking, ok at rest. Passing gas and anticipating BM. Hopeful for home tomorrow. Objective: Vital Signs Temp Pulse Resp BP Pulse Ox 36.6 C 84 19 106/57 L 94 06/06/17 07:43 06/06/17 07:43 06/06/17 07:43 06/06/17 07:43 06/06/17 07:43 Laboratory Results 06/04/17 04:05 06/06/17 05:44 06/05/17 06/06/17 06/07/17 05:59 05:59 05:59 Intake Total 1679.4 1501 Output Total 2221 4025 Balance -541.6 -2524 PT 19.9 SEC (12.0-15.0) H 06/03/17 19:05 INR 1.69 (0.83-1.16) H 06/03/17 19:05 AF w VVR yest afternoon responsive to amio. PAF as of 8pm, holding sinus since ~ midnight. No hypotension, electrolyte imbalance or desat. Vigorous diuresis on IV lasix. Now below baseline wt. CTOP at removal criteria. Physical Exam - Physical Exam General Appearance: alert, no apparent distress Respiratory: lungs clear (grossly), other (CTs x 3 y-d to pleurovac, thin serosang drainage, no air leak. All tubes removed together without incident.) Cardiac/Chest: regular rate, rhythm, other (Sternum grossly stable. Sternotomy CDI. Vwires removed without difficulty) Abdomen: normal bowel sounds, non-tender, soft Skin: warm/dry Extremities: other (No visible edema. LLE venotomy CDI.) ICD10 Worksheet Patient Problems: Problems Problem Status Onset Acute blood loss anemia Acute Angina pectoris Acute Coronary artery disease Acute Hyperlipidemia Acute Postoperative atrial fibrillation Acute S/P CABG x 4 Acute ~06/03/17
[2017-06-06] MEDS: DUTASTERIDE 0.5 MG CAP PO SCH (09:38)
[2017-06-06] MEDS: PANTOPRAZOLE SODIUM 40 MG TAB PO SCH (09:39)
[2017-06-06] MEDS: EZETIMIBE 10 MG TAB PO SCH (09:39)
[2017-06-06] MEDS: ASPIRIN 81 MG CHEWABLE TAB PO SCH (09:39)
[2017-06-06] MEDS: ATORVASTATIN CALCIUM 40 MG TAB PO SCH (09:39)
[2017-06-06] MEDS: GLUCOSAMINE/CHONDROITIN CAP PO SCH (09:39)
[2017-06-06] MEDS: ISOSORBIDE MONONITRATE 30 MG TAB.SR PO SCH (09:39)
[2017-06-06] MEDS: SENNOSIDES/DOCUSATE SODIUM TAB PO SCH ×2 (09:41→20:34)
[2017-06-06] MEDS: METOPROLOL TARTRATE 25 MG TAB PO SCH ×2 (09:41→20:33)
[2017-06-06] MEDS ORDERED: ALBUMIN 5% 250 ML IV ONE (12:30)
[2017-06-06] MEDS: AMIODARONE HCL 200 MG TAB PO SCH (20:34)
[2017-06-06] MEDS: NIACIN 500 MG TAB PO SCH (21:04)
--- NOTE | 2017-06-07 06:18 | SOAPPROG ---
SOAP Progress Note Assessment/Plan: POD#4 CABG x 4 (skeletonized YAHAIRA-PDAR, SHAFER-LAD, SV-D1, SV-OM), EVH left thigh. Sx CAD with preserved LV systolic fx - s/p CABG w 2 arterial grafts. Hemodynamically stable early postop course. Mild fluid overload. Secondary prevention with baby ASA, BB, and statin. CAMRON antispasm prophylaxis with nitrates x 1 mo. Acute expected blood loss anemia with mild coagulopathy - Stable. No blood products transfused. VTE prophylaxis with SCDs while plt count depressed. Postoperative PAF - with VVR, intermittent RVR. SR restored on IV amiodarone. Escalation of BB limited by BP. Antithrombotic prophylaxis w DOAC only if recurrent or persistent arrhythmia. Stress hyperglycemia - Preop A1c of 5.5%. Postop hyperglycemia controlled with low dose insulin gtt, transitioning to SSI. Steady resolution of correctional needs. Monitoring suspended. Disposition - Home this afternoon without services. Subjective: Denies weakness, light-headedness, CP, SOB. Feels ready to go home. Objective: Vital Signs Temp Pulse Resp BP Pulse Ox 36.7 C 80 18 99/57 L 94 06/06/17 23:26 06/06/17 23:26 06/06/17 23:26 06/06/17 23:26 06/06/17 23:26 Laboratory Results 06/04/17 04:05 06/06/17 05:44 06/06/17 06/07/17 06/08/17 05:59 05:59 05:59 Intake Total 1501 657 Output Total 4025 650 Balance -2524 7 PT 19.9 SEC (12.0-15.0) H 06/03/17 19:05 INR 1.69 (0.83-1.16) H 06/03/17 19:05 Physical Exam - Physical Exam General Appearance: WD/WN, alert, no apparent distress EENT: No scleral icterus (R), No scleral icterus (L) Neck: normal inspection Respiratory: No respiratory distress Cardiac/Chest: regular rate, rhythm Abdomen: non-tender, soft, No distended Skin: normal color, warm/dry Extremities: No swelling Neuro/Psych: no motor/sensory deficits, alert, normal mood/affect, oriented x 3 ICD10 Worksheet Patient Problems: Problems Problem Status Onset Acute blood loss anemia Acute Angina pectoris Acute Coronary artery disease Acute Hyperlipidemia Acute Postoperative atrial fibrillation Acute S/P CABG x 4 Acute ~06/03/17
[2017-06-07 06:40] LABS: HEMATOCRIT 30.3 % (40.0-51.0); HEMOGLOBIN 10.2 g/dL (13.7-17.5); MEAN CELL HEMOGLOBIN 32.3 pg (27.9-34.1); MEAN CELL HEMOGLOBIN CONCENTR. 33.7 g/dL (32.4-36.7); MEAN CELL VOLUME 95.9 fL (81.5-99.8); RED BLOOD CELL COUNT 3.16 10^6/uL (4.40-6.38); RED CELL DISTRIBUTION WIDTH 13.6 % (11.5-15.2)
[2017-06-07 06:57] LABS: ANION GAP 10 mEq/L (8-16); CALCIUM 8.8 mg/dL (8.5-10.4); CARBON DIOXIDE 25 mEq/l (22-31); CHLORIDE 107 mEq/L (97-110); CREATININE 0.6 mg/dL (0.7-1.3); GLOMERULAR FILTRATION RATE > 60; GLUCOSE 88 mg/dL (70-100); POTASSIUM 3.5 mEq/L (3.5-5.2); SODIUM 142 mEq/L (134-144)
[2017-06-07] MEDS ORDERED: POTASSIUM CL 20 MEQ TAB PO ONE (06:59)
[2017-06-07] MEDS: DUTASTERIDE 0.5 MG CAP PO SCH (08:39)
[2017-06-07] MEDS: EZETIMIBE 10 MG TAB PO SCH (08:40)
[2017-06-07] MEDS: NIACIN 500 MG TAB PO SCH (08:40)
[2017-06-07] MEDS: AMIODARONE HCL 200 MG TAB PO SCH (08:40)
[2017-06-07] MEDS: GLUCOSAMINE/CHONDROITIN CAP PO SCH (08:40)
[2017-06-07] MEDS: METOPROLOL TARTRATE 25 MG TAB PO SCH (08:40)
[2017-06-07] MEDS: PANTOPRAZOLE SODIUM 40 MG TAB PO SCH (08:40)
[2017-06-07] MEDS: ISOSORBIDE MONONITRATE 30 MG TAB.SR PO SCH (08:40)
[2017-06-07] MEDS: ATORVASTATIN CALCIUM 40 MG TAB PO SCH (08:40)
[2017-06-07] MEDS: SENNOSIDES/DOCUSATE SODIUM TAB PO SCH (08:41)
[2017-06-07] MEDS: ASPIRIN 81 MG CHEWABLE TAB PO SCH (08:41)
[2017-06-07] MEDS: ACETAMINOPHEN 325 MG TAB PO PRN (12:10)
[2017-06-07 12:20] VITALS: BP 109/64; TEMP 97.7
[2017-06-07 13:07] VITALS: PULSE 96; RESP 18; O2SAT 87
--- NOTE | 2017-06-07 13:38 | PDDCSUM ---
Discharge Summary Discharge Summary: ADMISSION DATE: 06/01/17 DISCHARGE DATE: 06/07/17 ADMISSION DX: 1. Unstable angina 2. Coronary artery disease with left main stenosis DISCHARGE DX: 1. Unstable angina 2. Coronary artery disease with left main stenosis 3. Paroxysmal atrial fibrillation PROCEDURES 06/03/17, Alexys Chavez: 1. CABGx4 (SHAFER-LAD, skeletonized YAHAIRA-PDA, SVG-Diag, SVG-OM), EV left leg HOSPITAL COURSE BY PROBLEM LIST 1. Unstable angina with CAD and left main stenosis s/p CABG x4 - well-tolerated post-operative course. Beta-giuseppe, aspirin, and statin prescribed for secondary prevention. 2. Post-operative atrial fibrillation - conversion to sinus rhythm with metoprolol and amiodarone. Thromboprophylaxis deferred to short duration of arrhythmia. CONDITION Good DISPOSITION Home, self-care ACTIVITY Pt was instructed on sternal precautions, activity limitations, and which problems to call [facility] with. Please see Discharge Plan in chart for specifics. MEDICATIONS New 1. Acetaminophen [Tylenol 325mg (*)] 650 mg PO Q4HRS PRN 2. Amiodarone HCl [Pacerone (*)] 200 mg PO BID 3. Isosorbide Mononitrate [Imdur 30 mg (*)] 30 mg PO DAILY 4. traMADol [Ultram 50 mg (*)] 50 mg PO Q6HRS PRN Continue: 1. Aspirin [Aspirin 81mg (*)] 81 mg PO DAILY 2. Atorvastatin Calcium [Lipitor 80 mg] 80 mg PO DAILY 3. Dutasteride [Avodart 0.5 MG (*)] 0.5 mg PO DAILY 4. Ezetimibe [Zetia 10 MG (*)] 10 mg PO DAILY 5. Glucosamine/Chondroitin [Glucosamine/Chondroitin (*)] 1 each PO DAILY 6. Loratadine [Claritin 10 mg] 10 mg PO DAILY PRN 7. Metoprolol Succinate Xr [Toprol Xl 25 mg (*)] 25 mg PO DAILY 8. Niacin [Niacin 500 mg (*)] 2,000 mg PO HS 9. TESTOSTERONE [Androgel 1.62% pump] 10 gr TD DAILY 10. Tadalafil [Cialis] 5 mg PO DAILY (hold until Imdur ends) Discontinue: 1. Nitroglycerin 2. Ibuprofen PENDING STUDIES/LABS 1. CXR prior to surgical follow-up F/U APPOINTMENTS 1. Jere Mcdaniel - 06/15/17, 11:30 AM
[2017-06-07] MEDS ORDERED: METOPROLOL TARTRATE 25 MG TAB PO ONE (15:00)
== END 2017-06-07 16:21 | disposition home or self-care (01) | DRG 234 ==
LOC: FCATH 13:27 → F2W 16:59 → F2N 06-03 14:00 → F2W 06-04 15:11
PROVIDERS: ADMIT Internal Medicine Interventional Cardiology; ATTEND Internal Medicine Interventional Cardiology
PROC: 4A023N7 Measurement of Cardiac Sampling and Pressure, Left Heart, Percutaneous Approach (ICD-10-PCS; 2017-06-01)
PROC: B2111ZZ Fluoroscopy of Multiple Coronary Arteries using Low Osmolar Contrast (ICD-10-PCS; 2017-06-01)
PROC: B2151ZZ Fluoroscopy of Left Heart using Low Osmolar Contrast (ICD-10-PCS; 2017-06-01)
PROC: 06BQ4ZZ Excision of Left Saphenous Vein, Percutaneous Endoscopic Approach (ICD-10-PCS; principal; 2017-06-03 14:45)
PROC: 02100Z9 Bypass Coronary Artery, One Artery from Left Internal Mammary, Open Approach (ICD-10-PCS; principal; 2017-06-03 14:45)
PROC: 021209W Bypass Coronary Artery, Three Arteries from Aorta with Autologous Venous Tissue, Open Approach (ICD-10-PCS; principal; 2017-06-03 14:45)
PROC: 5A1221Z Performance of Cardiac Output, Continuous (ICD-10-PCS; principal; 2017-06-03 14:45)
DX: I25.110 Atherosclerotic heart disease of native coronary artery with unstable angina pectoris (principal); I48.0 Paroxysmal atrial fibrillation; E78.5 Hyperlipidemia, unspecified; I10 Essential (primary) hypertension; Z87.891 Personal history of nicotine dependence
CPT/HCPCS: 82947-QW; 93005-PO; 97116-GP; 97161-GP; 97165-GO; 97530-GO; 97530-GP; 97535-GO; C1769; G0463-PO; G8978-GP-CK; G8979-GP-CI; G8980-GP-CI; G8987-GO-CK; G8988-GO-CI; J0153; J0282; J0690; J1265; J1644; J1815; J1940; J2001; J2150; J2250; J2260; J2370; J2440; J2704; J2720; J2930; J3010; J3370; J7060; P9041; Q9967

== ENCOUNTER → 2017-06-15 | Outpatient (CLI) | payer OTHER | LOC: FIMAGING 11:06 | PROVIDERS: ATTEND Physician Assistant | DX: R42 Dizziness and giddiness (principal); J90 Pleural effusion, not elsewhere classified; Z95.1 Presence of aortocoronary bypass graft ==